=== PATIENT | female | born 1955 | race Caucasian/White ===

== ENCOUNTER 2020-09-06 05:55 | Day surgery (SDC) | payer OTHER, SELFPAY ==
[2020-09-06 06:18] VITALS: BP 131/91; PULSE 94; RESP 16; TEMP 36.8; O2SAT 98; BMI 25.8
[2020-09-06] MEDS: Lactated Ringers 1,000 ML 100 ML IV (06:32)
[2020-09-06 07:41] LABS: Probe Check PASS; Specimen Processing Control PASS
--- NOTE | 2020-09-06 08:19 | PCM.OPRPT ---
Problem List (1) Hydronephrosis, right Status: Acute (2) Calculus of right kidney Status: Acute Report of Operation Date of Procedure: 09/06/20 Pre-Operative Diagnosis: Right hydronephrosis, right renal stones Post-Operative Diagnosis: Same Surgery/Procedure Performed:: Cystoscopy, right retrograde pyelogram, right ureteroscopy, right ureteral stent insertion Type of Anesthesia:: General Specimen's removed: None Description of Procedure: The patient is a 64-year-old female with a history of kidney stones who presented to the emergency room with acute onset right-sided flank pain associated with nausea and vomiting. CT scan revealed an obstruction of the right ureter with right renal stones visible. Etiology of the ureteral fraction was unable to be determined. She now presents for definitive evaluation and intervention. Informed consent was obtained. Patient was taken to the operating room and placed on the operating room table. Anesthesia monitored the head, neck, airway, IV access and vital signs throughout the case. Once anesthesia was appropriate ministered the patient was placed into dorsal lithotomy position was prepped and draped in usual sterile fashion. A cystourethroscopy was performed through the urethra under direct visualization. There were no abnormalities of the bladder mucosa or the urethra. The ureteral orifices were located in the correct anatomic position on the area of the trigone. The right ureteral orifice was intubated with a Pollack catheter and contrast was injected in retrograde fashion under fluoroscopic visualization. In the proximal portion of the ureter about 2 cm distal to the ureteropelvic junction, a circular filling defect is identified, not 100% consistent with a stone. At this time to 0.035 glide wires were inserted through the ureteral orifice into the renal pelvis under visualization. At this time one was left as a safety wire and the second was used for passage of the flexible ureteroscope. The ureteroscope entered the distal aspect of the ureter by approximately 2 to 3 cm and was unable to move further cephalad secondary to narrowing of the ureter. A false passage was starting to be made in the decision was made to place a ureteral stent to come back for ureteroscopy in a few weeks. A 6 Greenlandic 22 cm double-J stent was then inserted over the safety wire using the cystoscope. Good curling was achieved in the renal pelvis as well as the urinary bladder. The patient's bladder was then emptied and the case was terminated. The patient tolerated the procedure well and was taken to the recovery room in good condition. Grafts/Implants Used: 6 x 22 JJ stent - Complications None - Admit VTE Documentation VTE Present on Admission: Yes VTE Mechan Device Prophylaxis: SCD's VTE Pharm Prophylaxis ordered?: No Reason prophylaxis not ordered:: Treatment Not Indicated
[2020-09-06] MEDS: Cefazolin 2 GM in 0.9% Normal Saline 100 ML IV (08:20)
--- NOTE | 2020-09-06 08:24 | DCINST_ITS ---
Discharge Diet: No Restrictions Discharge Activity: May not drive while taking narcotic pain medications. Call your doctor if you observe: Fever of 101 or Higher, Inability to urinate, Inability to have a bowel movement, Calf discomfort, Uncontrolled pain Allergies/Adverse Reactions: Allergies No Known Allergies Allergy (Verified 09/06/20 06:16) Medications to take at Discharge Lisinopril 10 mg PO DAILY 09/05/20 Cephalexin [Keflex] 500 mg PO Q12 3 Days #6 capsule 09/06/20 Oxycodone HCl/Acetaminophen [Oxycodone-Acetaminophen 5-325] 1 each PO Q6H PRN 7 Days #20 tablet 09/06/20 Phenazopyridine HCl [Pyridium] 200 mg PO TID PRN PRN 7 Days #30 tablet 09/06/20 The following prescriptions were given: Cephalexin [Keflex] 500 mg PO Q12 3 Days #6 capsule Transmission Status: Pending to [facility] Oxycodone HCl/Acetaminophen [Oxycodone-Acetaminophen 5-325] 1 each PO Q6H PRN 7 Days #20 tablet PRN Reason: Pain 1-10 Or Fever Transmission Status: Sent to [facility] Phenazopyridine HCl [Pyridium] 200 mg PO TID PRN PRN 7 Days #30 tablet PRN Reason: Bladder Spasms Transmission Status: Pending to [facility] Primary Care Physician: Shabana Hale NP, [employer] [Primary Care Provider] - Test Results: Test results from this visit will be discussed in further detail at your follow- up appointment, if applicable. Please Follow Up With: Alessia Caballero MD When: call office for appt Proposed Discharge Date: 09/06/20
[2020-09-06 09:00] VITALS: BP 125/87; BP 131/91; PULSE 88; RESP 16; TEMP 36.6; O2SAT 99
[2020-09-06 09:15] VITALS: BP 122/74; BP 131/91; PULSE 84; RESP 16; O2SAT 98
[2020-09-06 09:30] VITALS: BP 121/78; BP 131/91; PULSE 86; RESP 16; TEMP 36.6; O2SAT 97
[2020-09-06 10:30] VITALS: BP 116/76; BP 131/91; PULSE 85; RESP 16; TEMP 37.2; O2SAT 97
== END 2020-09-06 10:50 | disposition home or self-care (01) ==
LOC: SDC 05:58 → AC 05:59
PROVIDERS: PCP Nurse Practitioner Family; Referring Provider Urology; Visit Provider Urology
PROC: 0TJ98ZZ Inspection of Ureter, Via Natural or Artificial Opening Endoscopic (ICD-10-PCS; CPT 52352; principal; 2020-09-06 07:20)
DX: N13.2 Hydronephrosis with renal and ureteral calculous obstruction (principal); Z20.828 Contact with and (suspected) exposure to other viral communicable diseases; E78.00 Pure hypercholesterolemia, unspecified; Z87.442 Personal history of urinary calculi; I10 Essential (primary) hypertension; F17.200 Nicotine dependence, unspecified, uncomplicated; Z79.899 Other long term (current) drug therapy
CPT/HCPCS: 52332; 76000; 87426; 87635; J7120; C1769; C2625; J2405; U0002

== ENCOUNTER 2020-10-15 06:56 | Day surgery (SDC) | payer OTHER, SELFPAY ==
[2020-10-15] VITALS (7 sets, daily range): BP systolic 104–125; BP diastolic 68–85; PULSE 77–83; RESP 16; TEMP 36.5–36.9; O2SAT 97–100; BMI 25.9
[2020-10-15] MEDS: Lactated Ringers 1,000 ML 100 ML IV ×2 (07:45→09:15)
--- NOTE | 2020-10-15 07:59 | HP.PCM_ITS ---
HPI - General HPI Narrative LYDIA NUÑEZ, is a 65 F who presents for ureteroscopy, laser lithotripsy and right ureteral stent change for a proximal right ureteral calculus. Informed consent was obtained. [facility] Medical History (Updated 10/15/20 @ 08:[address] Alessia Caballero MD) Calculus of right ureter Hypertension Post-menopausal Wears glasses Home Medications lisinopril 10 mg PO DAILY 09/05/20 [History Last Taken 10/15/20 05:30] cephalexin 500 mg PO TID 10/08/20 [History Last Taken Unknown] Allergy/AdvReac Type Severity Reaction Status Date / Time No Known Allergies Allergy Verified 10/08/20 09:16 Surgical History Status post cystoscopy with ureteral stent placement Social History Smoking Status: Current every day smoker ROS Constitutional Constitutional: Reports systems reviewed and no addt'l complaints, except as documented Eyes Eyes: Reports systems reviewed and no addt'l complaints, except as documented ENT HEENT: Reports systems reviewed and no addt'l complaints, except as documented Cardiovascular Cardiovascular: Reports systems reviewed and no addt'l complaints, except as documented; Denies chest pain Respiratory/Chest Respiratory/Chest: Reports systems reviewed and no addt'l complaints, except as documented; Denies cough or shortness of breath at rest Gastrointestinal Gastrointestinal: Reports systems reviewed and no addt'l complaints, except as documented Genitourinary Genitourinary: Reports low back pain, urinary frequency and urinary urgency Musculoskeletal Musculoskeletal: Reports systems reviewed and no addt'l complaints, except as documented Integumentary Integumentary: Reports systems reviewed and no addt'l complaints, except as documented Neurologic Neurologic: Reports systems reviewed and no addt'l complaints, except as documented Psychiatric Psychiatric: Reports systems reviewed and no addt'l complaints, except as documented Vital Signs Vital Signs Vital Signs: 10/15/20 07:33 10/15/20 07:36 Temperature 98.1 F Temperature Source Temporal Pulse Rate 77 Respiratory Rate 16 Respiratory Pattern Normal Blood Pressure 125/85 H Blood Pressure Mean 98 Blood Pressure Source Monitor Blood Pressure Position Semi-Fowlers Blood Pressure Location Left Arm Pulse Ox 98 Oxygen Delivery Method Room Air Weight Weight: 60.2 kg Body Mass Index (BMI) 25.9 Physical Exam Const alert, oriented x3, no apparent distress and healthy appearing HEENT normocephalic, hearing grossly normal bilaterally and external ears normal Eyes General Eye: normal appearance of both eyes Neck General: normal visual inspection and trachea midline Chest inspection of chest normal Chest: symmetrical chest wall rise Resp normal respiratory effort, normal air movement and no retractions Effort and Inspection: able to speak in complete sentences Cardio regular rate and regular rhythm GI soft to palpation, non-tender and non-distended Back/Spine normal to inspection General Back: CVA tenderness right Extremity normal to inspection Skin no rashes or lesions noted, no wounds and skin turgor normal Neuro oriented x3, CN's II-XII intact bilaterally and moves all extremities Psych mental status grossly normal and thought process normal Assessment & Plan Assessment/Plan (1) Hydronephrosis, right: PLAN: To the OR today for cystoscopy, right ureteroscopy with holmium laser lithotripsy and right ureteral stent change. Informed consent was obtained. Urine culture is negative and Covid is negative. (2) Calculus of right ureter: Procedure Criteria Type of Procedure Procedure Type: Elective Elective Risks - COVID COVID Risk Discussion: The surgeon/proceduralist and patient have discussed in detail the risk of exposure to and/or potential harm posed by the COVID-19 virus with having a surgery/procedure at this time versus the risk of delaying the surgery/procedure. It is not possible to know either the risk of delaying the surgery or procedure or chance of getting an infection with perfect accuracy, but a joint decision was made between the patient and the surgeon/proceduralist to proceed at this time with the scheduled surgery/procedure as indicated on the consent form.
[2020-10-15] MEDS: Cefazolin 2 GM in 0.9% Normal Saline 100 ML IV (08:11)
--- NOTE | 2020-10-15 08:25 | OP.PCM_ITS ---
Problems Associated Problem List Diagnoses (1) Calculus of right ureter: (2) Hydronephrosis, right: (3) Calculus of right kidney: Report of Operation Date of Procedure: 10/15/20 Pre-Operative Diagnosis: Right ureteral calculus with hydronephrosis, right renal calculus Post-Operative Diagnosis: Same, passed stone Surgery/Procedure Performed:: Cystoscopy, right ureteroscopy, right retrograde pyelogram, right ureteral stent change Surgeon: Alessia Caballero Type of Anesthesia: General Description of Procedure: The patient is a 65-year-old female with a right ureteral calculus with difficult ureteroscopy secondary to a narrow ureter. A ureteral stent was inserted and allowed to dilate naturally and she now presents for definitive intervention. Informed consent was obtained. The patient was taken to the operating room and placed on the operating room table. Anesthesia monitored the head, neck, airway, IV access and vital signs throughout the case. Once anesthesia was a probably administered, the patient was placed into dorsal lithotomy position and was prepped and draped in usual sterile fashion. The cystoscope was inserted through the urethra under direct visualization and into the urinary bladder. The right ureteral stent was easily observed and there was edema of the surrounding ureteral orifice. The stent was grasped and pulled to the urethral meatus without difficulty. A 0.035 Glidewire was inserted through the stent and was confirmed in the renal pelvis on fluoroscopic imaging. A second 0.035 Glidewire was passed alongside the first to be used as a safety wire. A flexible ureteroscope was then inserted over the wire which was then removed. The entire length of the ureter was directly visualized and no stone was identified. There is no ureteral mucosal abnormality identified. Several attempts were made at passage of the ureteroscope into the renal pelvis. The patient's ureteropelvic junction curves and I was unable to pass the ureteroscope into the pelvis even over a Glidewire. The imaging from the previous retrograde pyelogram was reviewed and the stone was identified distal to the area of the UPJ. A repeat retrograde pyelogram was performed revealing no further ureteral obstruction or filling defect. At this time the ureteroscope was removed and the cystoscope was used to place a 6 Upper Sorbian 22 cm double-J stent which did reach into the renal pelvis. There was curling there and in the urinary bladder. The patient's bladder was then emptied and the case was terminated. The patient was taken to the recovery room in good condition. There were no complications during the procedure. Grafts/Implants Used: 6x22cm JJ stent Complications None Admit VTE Documentation VTE Present on Admission: Yes VTE Mechan Device Prophylaxis: SCD's VTE Pharm Prophylaxis ordered?: No Reason prophylaxis not ordered:: Treatment Not Indicated
--- NOTE | 2020-10-15 08:27 | PCM.DC ---
Discharge Instructions Diet Discharge Diet: No restrictions Activity Discharge Activity: Return to Normal Activity and May not drive while taking narcotic pain medications. May resume sexual activity in: No Restrictions Dressing / Incision Call your doctor if you observe: Fever of 101 or Higher, Inability to urinate, Inability to have a bowel movement, Calf discomfort and Uncontrolled pain Follow Up Care Please Follow Up With: Alessia Caballero MD Test Results: Test results from this visit will be discussed in further detail at your follow-up appointment, if applicable. Discharge Plan Admission Attending Provider: Alessia Caballero Primary Care Provider: Shabana Hale NP Discharge Orders/Prescriptions Prescriptions: New oxycodone-acetaminophen [Percocet] 5-325 mg tablet 1 tab PO Q8H PRN (Reason: pain) 7 Days Qty: 20 RF: 0 phenazopyridine [Pyridium] 200 mg tablet 200 mg PO TID PRN PRN (Reason: Bladder Spasms) Qty: 30 RF: 0 Continued lisinopril 10 MG tablet 10 mg PO DAILY RF: 0 cephalexin 500 mg capsule 500 mg PO TID RF: 0 Referrals / Follow Up: Shabana Hale NP, [employer] CONSULTANT[employer] [Primary Care Provider] - Disposition Disposition (needs filled in before D/C Order can be placed): Home, self care
== END 2020-10-15 10:33 | disposition home or self-care (01) ==
LOC: SDC 06:56 → AC 06:57
PROVIDERS: PCP Nurse Practitioner Family; Referring Provider Urology; Visit Provider Urology
PROC: 0TJ98ZZ Inspection of Ureter, Via Natural or Artificial Opening Endoscopic (ICD-10-PCS; CPT 52352; principal; 2020-10-15 08:25)
DX: N13.2 Hydronephrosis with renal and ureteral calculous obstruction (principal); I10 Essential (primary) hypertension; Z79.899 Other long term (current) drug therapy; F17.210 Nicotine dependence, cigarettes, uncomplicated
CPT/HCPCS: 00910; 52332; 76000; J7120; C2625

== ENCOUNTER → 2020-10-23 07:39 | Outpatient (CLI) | payer OTHER, SELFPAY ==
[2020-10-15 07:33] VITALS: BMI 25.9
--- NOTE | 2020-10-23 07:44 | CT_ITS ---
STUDY: CT ABDOMEN AND PELVIS WITHOUT CONTRAST REASON FOR EXAM: Female, 65 years old. Right-sided renal calculus. RADIATION DOSAGE (If Supplied By Facility): CTDIvol = ( 6.55 ) mGy, DLP = ( 294.45 ) mGycm TECHNIQUE: Transaxial images were obtained from the dome of the diaphragm to the symphysis pubis without oral contrast, and without intravenous contrast. Sagittal and coronal images were reconstructed. Individualized dose optimization techniques were used for this CT. COMPARISON: None. FINDINGS: The visualized lung bases are unremarkable. Coronary artery calcification. Normal liver. Normal gallbladder and extrahepatic biliary system. Normal spleen. Normal pancreas. Normal bilateral adrenal glands. Mild degree of right hydronephrosis. A right-sided double-J stent catheter is seen with the proximal tip in the region of the right renal pelvis and distal tip in the right side of the bladder. There is a 3.7 mm calculus in the lower pole of the right kidney. Normal left kidney. Normal visualized stomach. Normal small intestine. Normal colon. The appendix is visualized and appears normal. There is scattered atherosclerotic calcification of the abdominal aorta, without a demonstrated aneurysm. Normal inferior vena cava. Normal retroperitoneum. Normal urinary bladder. Normal abdominal wall. There are mild degenerative changes of the visualized lumbar spine. CT/Abdomen/Pelvis without Cont IMPRESSION: Mild residual right hydronephrosis. A right-sided double-J stent catheter is seen. 3.7 mm calculus in the lower pole calyx of the right kidney. Phleboliths are seen in the pelvis. Electronically Signed: Roland Garcia MD at 9:25 EDT , Service support ,
== END ==
LOC: CT 07:43
PROVIDERS: PCP Nurse Practitioner Family; Referring Provider Urology; Visit Provider Urology
DX: N20.0 Calculus of kidney (principal); N13.39 Other hydronephrosis; N13.0 Hydronephrosis with ureteropelvic junction obstruction; N20.1 Calculus of ureter
CPT/HCPCS: 74176

== ENCOUNTER → 2020-11-12 11:08 | Outpatient (CLI) | payer OTHER, SELFPAY ==
[2020-10-15 07:33] VITALS: BMI 25.9
--- NOTE | 2020-11-12 11:12 | NM_ITS ---
CLINICAL: 65-year-old female with reported history of right kidney hydronephrosis. 99m Tc MAG3 DIURETIC RENAL SCINTIGRAPHY COMPARISON: CT of the abdomen-pelvis report 10/23/2020 FINDINGS: Following the intravenous administration of 11.0 mCi of 99m Tc MAG3, renal images reveal: 1. The flow study demonstrates symmetric-normal arterial phase distribution of the radiopharmaceutical to the bilateral kidneys. 2. Immediate static delayed nephrogram images depict prompt, homogeneous tracer distribution by the right and left renal units. Collecting structure visualization is observed at 4 minutes following radiotracer administration bilaterally. Washout of the radiopharmaceutical by the renal parenchyma of the right and left kidneys appears qualitatively normal. Markedly prominent right kidney collecting system activity obscures evaluation of the right kidney renal cortex. Spontaneous drainage of the left kidney collecting system is noted during 20 minutes of pre-Lasix sequential image acquisition. Significant right kidney collecting system activity is noted prior to diuretic provision. 3. The xwghe-[id number] ratio of total renal parenchymal function was calculated to be 49/51. Furosemide 20 mg was administered intravenously. The post Lasix T ? washout of the right kidney collecting system activity was calculated to be < 10 minutes, (normal < 10 minutes). NM/Renal Scan w/ Pharm Intervent IMPRESSION: 1. There is preservation of bilateral renal parenchymal-cortical function. Right kidney function is presumed normal in view of the significant collecting system activity promptly identified. 2. The ectatic-prominent right kidney collecting system demonstrates a normal physiologic response to induced diuresis negating the presence of significant mechanical and/or functional obstruction. Electronically Signed: Howard Campos DO at 6:39 EDT Tel , Service support ,
== END ==
PROVIDERS: PCP Nurse Practitioner Family; Referring Provider Urology; Visit Provider Urology
DX: N13.30 Unspecified hydronephrosis (principal)
CPT/HCPCS: 78708; A9562; J1940